=== PATIENT | male | born 1965 | race Two or more races ===

== ENCOUNTER 2019-12-26 03:38 | Emergency (ER) | payer MEDICAID ==
[~2019-12-26] VITALS: Ht 177.8 cm; Wt 72.6 kg
--- NOTE | 2019-12-26 04:11 | Emergency Room Report ---
History of Present Illness General Chief Complaint: Skin Rash/Abscess Source: Patient Present Illness HPI Disclaimer: Please note that this report is being documented using [employer] technology. This can lead to erroneous entry secondary to incorrect interpretation by the dictating instrument. HPI: 54-year-old male presents for evaluation of rash. He states 5 days ago he was crawling around some air ducts doing work when he was scratched by unknown object. Denied pain until earlier yesterday morning. Noted spreading erythema over the past few days. He noted a qureshi but disinfected with hydrogen peroxide and kept it covered with a sterile bandage. Qureshi resolved but erythema spread. He states it is warm to the touch and tender to palpation. No medication allergies. History of HIV but is on retroviral therapy and states he has been undetectable viral load for over 20 years. Denies fever, chills, shortness of breath, cough, chest pain, nausea, vomiting, diarrhea or other symptoms. Unsure of his last tetanus shot. PMH: HIV PSH: Hernia repair Allergies: Niacin Social Hx: Tobacco use Allergies: Coded Allergies: PAPAYA (Verified Allergy, Intermediate, hives, 12/26/19) NIACIN (Verified Adverse Reaction, Mild, Hives, 12/26/19) COVID-19 Screening Contact w/high risk pt: No Experienced COVID-19 symptoms?: No COVID-19 Testing performed [employer]: No Nursing Documentation-PMH Past Medical History: No History, Except For Hx Cancer: No - HIV Review of Systems All Other Systems: negative except mentioned in HPI Physical Exam Vital Signs Date Time Temp Pulse Resp B/P (MAP) Pulse Ox O2 Delivery O2 Flow Rate FiO2 12/26/19 03:49 98.2 98 18 113/71 (85) 97 Room Air General: Awake and alert, no acute distress HEENT: NC/AT. EOMI. Resp: Normal work of breathing Skin: There is a 3 x 3 area of erythema over the left lower abdomen is tender palpation and warm to the touch. No fluctuance, no pustules, no overlying skin breakdown, ulcerations, vesicles or other findings. MSK: Normal tone and bulk. Moving all extremities. No obvious deformity. Neuro: Awake and alert. Mentating appropriately Medical Decision Making Diagnostic Impression: Primary Impression: Cellulitis ER Course This is a 54-year-old male presenting for evaluation of a painful rash in his left lower abdomen. Presentation most consistent with a cellulitis. We will update the patient's tetanus as it is unclear when his last booster shot was and start him on Bactrim. No evidence of abscess. There is otherwise no weeping, drainage or vesicles. No evidence of TEN, Omrton-Siddhartha's or other concerning skin conditions. Will provide a dose of Toradol for pain control and first dose of Bactrim in the ED. We will prescribe Motrin and Bactrim on an outpatient basis. Instructed to return with new or worsening symptoms. He understands and agrees with this treatment plan. Last Vital Signs Date Time Temp Pulse Resp B/P (MAP) Pulse Ox O2 Delivery O2 Flow Rate FiO2 12/26/19 03:49 98.2 98 18 113/71 (85) 97 Room Air Disposition: HOME, SELF-CARE Condition: Stable Scripts Trimethoprim/Sulfamethoxazole 160/800* (BACTRIM DS TABLET*) 1 Each Tablet 1 TAB ORAL Q12H for 7 Days, #14 TAB 0 Refills Prov: Mir Martinez MD 12/26/19 Ibuprofen* (MOTRIN*) 600 Mg Tablet 600 MG ORAL Q6H PRN for For Pain, #30 TAB 0 Refills Prov: Mir Martinez MD 12/26/19 Mir Martinez MD Dec 26, 2019 04:11
[2019-12-26] MEDS ORDERED: IBUPROFEN600 M1 ORAL (04:12)
[2019-12-26] MEDS ORDERED: BACTRIM DS TAB1 EAC1 ORAL (04:12)
[2019-12-26] MEDS ORDERED: Bactrim-DS 1 tab ORAL ONE (04:15)
[2019-12-26] MEDS ORDERED: Tetanus/Diptheria/Pertussis IM ONE (04:15)
[2019-12-26] MEDS: HYDROcodone/Acetamin 5/325 tab ORAL ONE ×2 (04:16→04:25)
[2019-12-26] MEDS ORDERED: Ketorolac 30mg Inj ONE (04:24)
[2019-12-26 04:30] VITALS: BP 113/71
[2019-12-26] MEDS ORDERED: Ketorolac 30mg Inj IM ONE (04:30)
== END 2019-12-26 04:30 | disposition home or self-care (01) ==
LOC: EMR 04:12
DX: L03.311 Cellulitis of abdominal wall (principal); B20 Human immunodeficiency virus [HIV] disease; Z88.8 Allergy status to other drugs, medicaments and biological substances; Z23 Encounter for immunization
CPT/HCPCS: 90471; 90715; 96372; J1885; Z7502; 99283